=== PATIENT | female | born 1950 | race Caucasian/White ===

== ENCOUNTER → 2023-07-20 07:58 | Outpatient (REF) | payer MEDICARE, SELFPAY | LOC: HWWDC 07:58 | PROVIDERS: ATTENDING PHYSICIAN Internal Medicine | DX: Z12.31 Encounter for screening mammogram for malignant neoplasm of breast (principal) | CPT/HCPCS: 77063; 77067 ==

== ENCOUNTER → 2023-10-09 08:52 | Outpatient (REF) | payer MEDICARE, SELFPAY | LOC: HWRAD 08:52 | PROVIDERS: ATTENDING PHYSICIAN Internal Medicine; FAMILY PHYSICIAN Internal Medicine | DX: N18.30 Chronic kidney disease, stage 3 unspecified (principal) | CPT/HCPCS: 76770 ==

== ENCOUNTER → 2024-07-20 07:14 | Outpatient (REF) | payer MEDICARE, SELFPAY | LOC: HWWDC 07:14 | PROVIDERS: ATTENDING PHYSICIAN Family Medicine | DX: Z12.31 Encounter for screening mammogram for malignant neoplasm of breast (principal) | CPT/HCPCS: 77063; 77067 ==